=== PATIENT | male | born 1945 | race African-American/Black ===

== ENCOUNTER 2018-10-21 19:13 | Emergency (ER) | payer OTHER ==
[~2018-10-21] VITALS: Ht 167.6 cm; Wt 59.0 kg
[2018-10-21 20:07] LABS: HEMATOCRIT 36.3 % (42.0-52.0); HEMOGLOBIN 12.2 gm/dL (14.0-18.0); MCH 31.4 pg (26.0-34.0); MCHC 33.7 g/dL (28.0-37.0); MCV 93.1 fL (80.0-100.0); RBC 3.9 mil/uL (4.50-6.00); RDW 13.5 % (10.5-14.5); WBC 4.9 thou/uL (4.0-11.0)
[2018-10-21 20:15] LABS: ANION GAP 10 mmol/L (7-16); BUN 23 mg/dL (7-18); CALCIUM 9.4 mg/dL (8.5-10.1); CHLORIDE 105 mmol/L (98-107); CO2 26 mmol/L (21-32); CREATININE 1.5 mg/dL (0.7-1.3); GLUCOSE 140 mg/dL (74-106); POTASSIUM 4.1 mmol/L (3.5-5.1); SODIUM 141 mmol/L (136-145)
[2018-10-21 20:23] LABS: APTT 21.8 Seconds (24.5-32.8); PROTIME 10.3 Seconds (9.3-11.4)
[2018-10-21 20:24] LABS: TROPONIN-I <0.06 ng/mL (<0.06)
[2018-10-21 20:35] LABS: URINE BILIRUBIN NEGATIVE (Negative); URINE BLOOD NEGATIVE (Negative); URINE CLARITY CLEAR; URINE COLOR YELLOW; URINE GLUCOSE-RANDOM* 3+ (Negative); URINE KETONES NEGATIVE (Negative); URINE LEUKOCYTES-REFLEX NEGATIVE (Negative); URINE NITRITE-REFLEX NEGATIVE (Negative); URINE PROTEIN (DIPSTICK) TRACE (Negative); URINE UROBILINOGEN 0.2 E.U./dl (0.2-1.0)
[2018-10-21 23:10] VITALS: BP 130/50
--- NOTE | 2018-10-22 08:15 | EKG ---
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: : 1945 Requested By: Ricky Lomax Order Number: [id number] MD: Pritesh Moody Measurements Intervals Simpson Rate: 78 P: -50 NH: 176 QRS: 53 QRSD: 100 T: 95 QT: 399 QTc: 455 Interpretive Statements Sinus rhythm Atrial premature complexes Nonspecific T abnormalities, lateral leads No previous ECG available for comparison Electronically Signed On 10-22-2018 8:15:36 CDT by Pritesh Moody [email or web address] ��������������������������������������������� <ELECTRONICALLY SIGNED> ���������������������������������������� By: Pritesh Moody MD, [facility] ��������������������������������������������� 10/22/18 0815 [id number] 11 Pritesh Moody MD, FACC /EPI
== END 2018-10-21 23:10 | disposition home or self-care (01) ==
LOC: ER 19:13
PROVIDERS: Emergency Medicine
DX: F03.90 Unspecified dementia, unspecified severity, without behavioral disturbance, psychotic disturbance, mood disturbance, and anxiety (principal); I48.91 Unspecified atrial fibrillation